=== PATIENT | female | born 1965 | race Caucasian/White ===

== ENCOUNTER 2019-01-29 19:13 | Emergency (ER) | payer SELFPAY ==
--- NOTE | 2019-01-29 19:18 | PDOC ---
Rapid Medical Evaluation Time Seen by Provider: 01/29/19 19:15 Medical Evaluation: 01/29/19 19:15 HPI: Seen by PC 2 days ago complains of Abdominal pain and body aches, fever, x5 days history of abdominal surgery last normal BM yesterday PE: No acute distress ORDERS:Labs 01/29/19 19:18 Discharge Disposition - Diagnosis Abdominal pain - Referrals - Patient Instructions - Post Discharge Activity
[2019-01-29 19:20] VITALS: BP 159/77; PULSE 96; TEMP 98.7; BMI 29.8
--- NOTE | 2019-01-29 21:01 | PDOC ---
History of Present Illness - General Chief Complaint: Pain Stated Complaint: REFER DR. SOTELO PT HERE/APPENDIX Time Seen by Provider: 01/29/19 19:15 - History of Present Illness Initial Comments: 01/29/19 20:59 53 year old woman with a history of who presents with 4 days of off and on fever (Tmax 103.4F) body aches, cough and suddent onset RUQ pain raditing to the R flank and R side of the groin, described as burning and constant since onset rated 9/10-10/10 mildly relieved with ibuprofen and associated with some nausea. She has not had a BM or passed gas for 1 day, which is unusual for her. She also complains of some bloating The denies any chest pain or shortness of breath, dysuria, hematuria had one loose stool yesterday pmshx: myomectomy, hysterectomy, cholecystectomy (2000) Past History - Past Medical History Allergies/Adverse Reactions: Allergies Allergy/AdvReac Type Severity Reaction Status Date / Time No Known Allergies Allergy Verified 01/29/19 19:15 COPD: No Diabetes: Yes (pre-diabetic) HTN: Yes (not taking meds) - Surgical History Cholecystectomy: Yes - Suicide/Smoking/Psychosocial Hx Smoking History: Never smoked Review of Systems - Review of Systems Able to Perform ROS?: Yes Comments:: 01/29/19 22:15 GENERAL/CONSTITUTIONAL: + fever No chills. No weakness. HEAD, EYES, EARS, NOSE AND THROAT: No change in vision. No ear pain or discharge. No sore throat. CARDIOVASCULAR: No chest pain or shortness of breath RESPIRATORY: + nonprod cough, No wheezing, or hemoptysis. GASTROINTESTINAL: + nausea, No vomiting, diarrhea or constipation. GENITOURINARY: No dysuria, frequency, or change in urination. MUSCULOSKELETAL: No joint or muscle swelling or pain. No neck or back pain. SKIN: No rash NEUROLOGIC: No headache, vertigo, loss of consciousness, or change in strength/ sensation. ENDOCRINE: No increased thirst. No abnormal weight change HEMATOLOGIC/LYMPHATIC: No anemia, easy bleeding, or history of blood clots. ALLERGIC/IMMUNOLOGIC: No hives or skin allergy. Is the patient limited Georgian proficient: No *Physical Exam - Vital Signs Last Vital Signs Temp Pulse Resp BP Pulse Ox 98.7 F 96 H 18 159/77 97 01/29/19 19:17 01/29/19 19:17 01/29/19 19:17 01/29/19 19:17 01/29/19 19:17 - Physical Exam Comments: 01/29/19 21:38 GENERAL: Awake, alert, and fully oriented, in no acute distress HEAD: No signs of trauma, normocephalic, atraumatic EYES: PERRLA, EOMI, sclera anicteric, conjunctiva clear ENT: oropharynx clear without exudates. Moist mucosa NECK: Normal ROM, supple, no lymphadenopathy LUNGS: No distress, speaks full sentences, clear to auscultation bilaterally HEART: Regular rate and rhythm, normal S1 and S2, no murmurs, rubs or gallops, peripheral pulses normal and equal bilaterally. ABDOMEN: Soft, + RUQ ab tender > RLQ, suprapubic tenderness, R cva tenderness, normoactive bowel sounds. No guarding, no rebound. No masses EXTREMITIES : Normal inspection, Normal range of motion, no edema. No clubbing or cyanosis. NEUROLOGICAL: Cranial nerves II through XII grossly intact. Normal speech, normal gait, no focal sensorimotor deficits SKIN: Warm, Dry, normal turgor, no rashes or lesions noted Medical Decision Making - Medical Decision Making 01/29/19 21:20 53 year old woman who presents with 4 days of off and on fever (Tmax 103.4F) body aches, cough and suddent onset RUQ pain raditing to the R flank and R side of the groin, described as burning and constant since onset rated 9/10-10/10 mildly relieved with ibuprofen and associated with some nausea. She has not had a BM or passed gas for 1 day, which is unusual for her. She also complains of some bloating The denies any chest pain or shortness of breath, dysuria, hematuria had one loose stool yesterday ED Course: ddx ibnlt: consider sbo vs retained gallstone vs pyelo vs nephrolithiasis vs colitis cbc, cmp, lipase, ua CT AP Patient signed out to resident Dr. Arenas *DC/Admit/Observation/Transfer Diagnosis at time of Disposition: Abdominal pain - Referrals Referrals: Germain Masters MD [Primary Care Provider] - - Patient Instructions - Post Discharge Activity
[2019-01-29] MEDS ORDERED: SODIUM CHLORIDE 1,000 ML IV SCH (22:00)
--- NOTE | 2019-01-29 22:03 | PDOC ---
*Physical Exam - Vital Signs Last Vital Signs Temp Pulse Resp BP Pulse Ox 98.7 F 96 H 18 159/77 97 01/29/19 19:17 01/29/19 19:17 01/29/19 19:17 01/29/19 19:17 01/29/19 19:17 ED Treatment Course - LABORATORY CBC & Chemistry Diagram: 01/29/19 22:05 01/29/19 22:30 Medical Decision Making - Medical Decision Making 01/29/19 22:02 Pt signed out to me by Dr. Rubio. 53F who presents with R flank pain. Pending CTAP. Pain will be treated with acetaminophen. 01/30/19 02:06 CT shows basilar pneumonia without evidence of intraabdominal pathology. Pt nontender on repeat exam. Will d/c home with abx and PCP f/u. *DC/Admit/Observation/Transfer Diagnosis at time of Disposition: Abdominal pain Qualifiers: Abdominal location: lower abdomen, unspecified Qualified Code(s): R10.30 - Lower abdominal pain, unspecified Pneumonia Qualifiers: Pneumonia type: due to unspecified organism Laterality: unspecified laterality Lung location: unspecified part of lung Qualified Code(s): J18.9 - Pneumonia, unspecified organism UTI (urinary tract infection) Qualifiers: Urinary tract infection type: site unspecified Hematuria presence: without hematuria Qualified Code(s): N39.0 - Urinary tract infection, site not specified - Discharge Dispostion Disposition: HOME Condition at time of disposition: Stable Decision to Admit order: No - Referrals Referrals: Germain Masters MD [Primary Care Provider] - - Patient Instructions Printed Discharge Instructions: DI for Urinary Tract Infection (UTI) Additional Instructions: Your ER visit is not complete until your follow up with your primary care physician. Please follow up with your primary care physician in 1-2 days. Please return to the ER if you have any signs or symptoms of chest pain, shortness of breath, uncontrollable fever, chills, nausea, vomiting, numbness, tingling, or weakness in any part of your body, changes in vision, or slurred speech. Please take your medications as prescribed. Please return to the ER if symptoms persist, worsen, or new symptoms arise. - Post Discharge Activity
[2019-01-29] MEDS ORDERED: ACETAMINOPHEN 1000 MG/100 ML VIAL (NON FORMULARY) IVPB ONE (22:05)
[2019-01-29 22:21] LABS: BASO % 0.7 % (0-2.0); EOS % 3.4 % (0-4.5); HEMATOCRIT 39.5 % (32.4-45.2); HEMOGLOBIN 13.1 GM/dL (10.7-15.3); LYMPH % 31.3 % (8-40); MCH 29.8 pg (25.7-33.7); MCHC 33.3 g/dl (32.0-36.0); MEAN CELL VOLUME 89.4 fl (80-96); MEAN PLT VOLUME 8.1 fl (7.5-11.1); MONO % 7.4 % (3.8-10.2); NEUT % 57.2 % (42.8-82.8); PLATELET COUNT 290 K/MM3 (134-434); RBC 4.41 M/mm3 (3.60-5.2); RDW 13.6 % (11.6-15.6); WHITE BLOOD COUNT 5.9 K/mm3 (4.0-10.0)
[2019-01-29 22:28] LABS: URINE APPEARANCE CLEAR; URINE BILIRUBIN NEGATIVE (NEGATIVE); URINE COLOR YELLOW; URINE GLUCOSE (UA) NEGATIVE (NEGATIVE); URINE KETONE NEGATIVE (NEGATIVE); URINE LEUK ESTERASE 2+ (NEGATIVE); URINE NITRITE NEGATIVE (NEGATIVE); URINE PROTEIN NEGATIVE (NEGATIVE); URINE UROBILINOGEN 0.2 mg/dL (0.2-1.0)
[2019-01-29] MEDS ORDERED: ACETAMINOPHEN INJECTION 100 ML IVPB ONE (22:31)
[2019-01-29 22:58] LABS: EPI CELLS 1.5 /HPF (0-5/HPF); URINE BACTERIA 50.8 /hpf (NEGATIVE); URINE CASTS 0.35 /lpf (0-8); URINE RBC 0.5 /hpf (0-4); URINE WBC 10.4 /hpf (0-5)
[2019-01-29 23:23] LABS: ALBUMIN 3.6 g/dl (3.4-5.0); BILIRUBIN,TOTAL 0.3 mg/dL (0.2-1); CREATININE 0.5 mg/dL (0.55-1.3); POTASSIUM 3.6 mmol/L (3.5-5.1); TOT PROT 7.2 g/dl (6.4-8.2)
[2019-01-29] MEDS ORDERED: CEFTRIAXONE 1,000 MG in DEXTROSE 5%-WATER - 50 ML IVPB ONE (23:37)
[2019-01-30] MEDS ORDERED: CEFTRIAXONE 1 GM/50 ML BAG ONE (00:21)
--- NOTE | 2019-01-30 00:54 | PDOC ---
Documentation entered by Abby Fowler SCRIBE, acting as scribe for Augustin Littlejohn MD. Augustin Littlejohn MD: This documentation has been prepared by the Malcolm brown Daisy, SCRIBE, under my direction and personally reviewed by me in its entirety. I confirm that the documentation accurately reflects all work, treatment, procedures, and medical decision making performed by me. Attending Attestation - Resident Resident Name: Lea Rubio - ED Attending Attestation I have performed the following: I have examined & evaluated the patient, The case was reviewed & discussed with the resident, I agree w/resident's findings & plan - HPI HPI: 01/29/19 22:10 The patient is a 53 YOF with a PMH of myomectomy, hysterectomy, and cholecystectomy (in 2000) who presents to the ED for right upper quadrant pain with radiation to the right flank and right side of her groin for the past 4 days. She endorses nausea, but has now resolved. Patient was seen by her PCP 2 days ago, was given a shot of toradol and given discharged home on motrin. Patient presents today for persistent right upper quadrant pain. Denies any cp, sob, fever, chills, N/V/D/C, or urinary symptoms. Allergies: NKDA - Physicial Exam PE: 01/30/19 00:51 Patient is awake and alert, well-nourished, in no distress Normocephalic and atraumatic PERRLA, EOMI, no scleral icterus mm-dry CTA RRR Abdomen is soft, nondistended, mild to moderate right upper quadrant and right lower quadrant is appreciated; no guarding /rebound, no CVA tenderness - Medical Decision Making 01/30/19 00:53 53-year-old female presents to the ER with flulike symptoms associated with right upper and right lower quadrant pain and nausea. Will obtain influenza A/B swab, will hydrate, we'll obtain CBC/CMP/CT of abdomen and pelvis. Will reassess. 01/30/19 01:50 Imaging: Abdomen and Pelvis CT Findings: Nodular and interstitial densities throughout right lung base. 2.1 cm right perihilar consolidation versus nodule. Findings suspicious for atypical infection. Additional 6 mm nodule left upper lobe and right lower lobe nodules up to 8 mm. Advise followup. No bowel obstruction, colitis, free fluid or free air. Normal appendix. Diverticulosis colon without acute diverticulitis. Unremarkable pancreas and kidneys. Cholecystectomy. Tiny umbilical hernia containing fat. Reported by: Dr. Villa
--- NOTE | 2019-01-30 17:16 | EKG ---
Test Reason : Blood Pressure : / mmHG Vent. Rate : 088 BPM Atrial Rate : 088 BPM P-R Int : 126 ms QRS Dur : 088 ms QT Int : 370 ms P-R-T Axes : 056 001 004 degrees QTc Int : 447 ms NORMAL SINUS RHYTHM NONSPECIFIC ST ABNORMALITY ABNORMAL ECG NO PREVIOUS ECGS AVAILABLE Confirmed by RADHA MCKEON MD ([id number]) on 01/30/2019 5:15:29 PM Referred By: Confirmed By:RADHA MCKEON MD
== END 2019-01-30 02:27 | disposition home or self-care (01) ==
LOC: JER 19:13
PROC: 3E03329 Introduction of Other Anti-infective into Peripheral Vein, Percutaneous Approach (ICD-10-PCS; principal; 2019-01-29)
PROC: 3E033NZ Introduction of Analgesics, Hypnotics, Sedatives into Peripheral Vein, Percutaneous Approach (ICD-10-PCS; 2019-01-29)
DX: J18.9 Pneumonia, unspecified organism (principal); N39.0 Urinary tract infection, site not specified; R10.9 Unspecified abdominal pain
CPT/HCPCS: 36415; 74177-TC; 80053; 81003; 82272; 83605; 83690; 85025; 87040; 87086; 87186; 87804; 93005; 93010; 99282-25; J0131; J7030

== ENCOUNTER 2019-09-30 10:14 | Emergency (ER) | payer OTHER ==
[2019-09-30 10:50] VITALS: BP 165/86; PULSE 83; TEMP 97.8
[2019-09-30] MEDS ORDERED: FAMOTIDINE 20 MG/50 ML IVPB 20 MG/50 ML MG IVPB ONE ×3 (12:16→13:29)
--- NOTE | 2019-09-30 12:17 | PDOC ---
History of Present Illness - General Chief Complaint: Pain, Acute Stated Complaint: STOMACH PAIN Time Seen by Provider: 09/30/19 11:27 History Source: Patient Exam Limitations: No Limitations - History of Present Illness Initial Comments: 09/30/19 12:16 54y F with PMH of PUD, cholecystectomy presenting to ED with abdominal pain radiating to the back across the L side of the abdomen, radiating to the chest and shoulder (L). She was recently diagnosed with PUD;tested positive for h. pylori, finished course of amoxicillin, clarithromycin and Prilosec. She states that she still has the abdominal pain. The pain is sharp and worse right before and after meals. Denies sob, fevers, chills, n/v/d, bloody stools, urinary symptoms, headache, weakness, numbness/tingling. Denies recent surgeries, blood clots, use of OCPS, travel, leg swelling, mi in the family or smoking. Past History - Past Medical History Allergies/Adverse Reactions: Allergies Allergy/AdvReac Type Severity Reaction Status Date / Time No Known Allergies Allergy Verified 01/29/19 19:15 Home Medications: Ambulatory Orders Esomeprazole Magnesium [Nexium 24Hr] 20 mg PO DAILY #30 capsule. 09/30/19 COPD: No Diabetes: Yes (pre-diabetic) HTN: Yes (not taking meds) - Surgical History Cholecystectomy: Yes - Psycho Social/Smoking Cessation Hx Smoking History: Never smoked Review of Systems - Review of Systems Constitutional: No: Symptoms Reported HEENTM: No: Symptoms Reported Respiratory: No: Symptoms reported Cardiac (ROS): Yes: See HPI ABD/GI: Yes: See HPI : No: Symptoms Reported Musculoskeletal: No: Symptoms Reported Integumentary: No: Symptoms Reported Neurological: No: Symptoms reported *Physical Exam - Vital Signs Last Vital Signs Temp Pulse Resp BP Pulse Ox 97.8 F 83 18 165/86 98 09/30/19 10:49 09/30/19 10:49 09/30/19 10:49 09/30/19 10:49 09/30/19 10:49 - Physical Exam General Appearance: Yes: Nourished, Appropriately Dressed. No: Apparent Distress HEENT: positive: EOMI, [place], Normal ENT Inspection Neck: positive: Trachea midline, Supple. negative: Lymphadenopathy (R), Lymphadenopathy (L) Respiratory/Chest: positive: Chest Tender (L scapula, L anterior chest), Lungs Clear, Normal Breath Sounds. negative: Crackles, Rales, Rhonchi, Stridor, Wheezing Cardiovascular: positive: Regular Rhythm, Regular Rate, S1, S2. negative: Edema , JVD, Murmur Vascular Pulses: Dorsalis-Pedis (R): 2+, Doralis-Pedis (L): 2+ Gastrointestinal/Abdominal: positive: Normal Bowel Sounds, Tender (epigastric tenderness), Soft Musculoskeletal: negative: CVA Tenderness Extremity: positive: Normal Capillary Refill. negative: Swelling, Calf Tenderness, Erythema Integumentary: positive: Normal Color, Dry, Warm Neurologic: positive: manager fitness II-XII NML intact, Fully Oriented, Alert, Normal Mood/ Affect, Normal Response, Motor Strength 01/26 ED Treatment Course - LABORATORY CBC & Chemistry Diagram: 09/30/19 12:25 09/30/19 12:25 - RADIOLOGY Radiology Studies Ordered: Category Date Time Status CHEST PA & LAT [RAD] Stat Radiology 09/30/19 12:15 Ordered Medical Decision Making - Medical Decision Making 09/30/19 19:46 54y F with PUD and cholecystectomy presenting for abdominal pain and chest pain. vitals wnl chest pain likely due to reflux/GERD or costochondritis given presentation. Low suspicion for mediastinitus or pneumomediastinum. PERC negative. will order basic labs, trop, ekg, cxr, ofirmev, pepcid ekg: nsr at 79bpm, normal intervals, no signs of ischemia labs wnl. negative trop. cxr: no free air or consolidations/infiltrates. pt much improved after medications. likely pain due to reflux/gerd or pud. can be dc home, will prescribe nexium. GI f/u given. Discharge - Discharge Information Problems reviewed: Yes Clinical Impression/Diagnosis: Abdominal pain Qualifiers: Abdominal location: epigastric Qualified Code(s): R10.13 - Epigastric pain Condition: Improved Disposition: HOME - Admission No - Additional Discharge Information Prescriptions: Esomeprazole Magnesium [Nexium 24Hr] 20 mg PO DAILY #30 capsule.dr - Follow up/Referral Referrals: Germain Masters MD [Primary Care Provider] - Brant Villareal MD [Staff Physician] - - Patient Discharge Instructions Patient Printed Discharge Instructions: DI for Peptic Ulcer Additional Instructions: Te vieron en la [facility] emerg[facility] por dolor abdominal. [place] probablemente se deba a la enfermedad de la lcera pptica causada por H. Pylori. Le dieron kesha receta para Nexium, tmela segn las indicaciones. Se le envi kesha referencia para un mdico GI. Por favor trate de hacer kesha judson. A veces, el seguro puede necesitar que noel mdico de atencin primaria lo remita a ulisses, as que yoselyn kesha judson con noel mdico. Regrese a la [facility] de emergencias si el dolor empeora, comienza a vomitar jonathan o si se desarrolla algn sntoma nuevo o preocupante. Tuyet You were seen in the emergency room for abdominal pain. This is likely due to the peptic ulcer disease caused by H. Pylori. You were given a prescription for Nexium, please take as directed. A referral was sent to you for a GI doctor. Please try to make an appointment. Sometimes the insurance may need your primary care doctor to refer you to one, so please make an appointment with your doctor. Come back to the emergency room if pain worsens, you start vomiting blood or if any new or concerning symptom develops. Thank you - Post Discharge Activity
[2019-09-30 12:39] LABS: BASO % 1.4 % (0-2.0); HEMATOCRIT 40.7 % (32.4-45.2); HEMOGLOBIN 13.5 GM/dL (10.7-15.3); LYMPH % 35.5 % (8-40); MCH 29.4 pg (25.7-33.7); MCHC 33.1 g/dl (32.0-36.0); MEAN CELL VOLUME 88.8 fl (80-96); MEAN PLT VOLUME 7.9 fl (7.5-11.1); MONO % 4.7 % (3.8-10.2); NEUT % 56.4 % (42.8-82.8); PLATELET COUNT 312 K/MM3 (134-434); RBC 4.58 M/mm3 (3.60-5.2); RDW 13.6 % (11.6-15.6); WHITE BLOOD COUNT 5.9 K/mm3 (4.0-10.0)
--- NOTE | 2019-09-30 12:56 | EKG ---
Test Reason : Blood Pressure : / mmHG Vent. Rate : 079 BPM Atrial Rate : 079 BPM P-R Int : 136 ms QRS Dur : 088 ms QT Int : 390 ms P-R-T Axes : 050 002 002 degrees QTc Int : 447 ms NORMAL SINUS RHYTHM NORMAL ECG WHEN COMPARED WITH ECG OF 29-JAN-2019 21:09, NO SIGNIFICANT CHANGE WAS FOUND Confirmed by MD Benedict Daniel ([id number]) on 09/30/2019 12:56:00 PM Referred By: Confirmed By:Germain Benedict MD
[2019-09-30 13:11] LABS: LIPASE 80 U/L (73-393)
[2019-09-30 13:13] LABS: ALBUMIN 3.9 g/dl (3.4-5.0); BILIRUBIN,TOTAL 0.3 mg/dL (0.2-1); BLOOD UREA NITROGEN 7.4 mg/dL (7-18); CALCIUM 9.2 mg/dL (8.5-10.1); CREATININE 0.6 mg/dL (0.55-1.3); POTASSIUM 3.7 mmol/L (3.5-5.1); TOT PROT 7.6 g/dl (6.4-8.2)
--- NOTE | 2019-09-30 13:42 | PDOC ---
Documentation entered by Germain Vincent SCRIBE, acting as scribe for Dewayne Lawrence MD. Dewayne Lawrence MD: This documentation has been prepared by the Carlton brown Daniel, SCRIBE, under my direction and personally reviewed by me in its entirety. I confirm that the documentation accurately reflects all work, treatment, procedures, and medical decision making performed by me. Attending Attestation - Resident Resident Name: Sa Brendaira - ED Attending Attestation I have performed the following: I have examined & evaluated the patient, The case was reviewed & discussed with the resident, I agree w/resident's findings & plan, Exceptions are as noted - HPI HPI: 09/30/19 13:42 54 F presenting to ED with 6 weeks of epigastric pain. Pt states that she has had pain radiating from her epigastrum to her L shoulder. Was diagnosed with H pylori by her PMD 3 weeks ago and completed her course of triple therapy abx. However, pt reports no improvement in her pain. Pt denies N/V. Denies CP/SOB. Denies diarrhea/constipation. Has not been taking any medications at home for this pain. - Physicial Exam PE: 09/30/19 13:43 "GENERAL: Awake, alert, and fully oriented, in no acute distress. HEAD: No signs of trauma EYES: PERRLA, EOMI, sclera anicteric, conjunctiva clear ENT: Auricles normal inspection, hearing grossly normal, nares patent, oropharynx clear without exudates. Moist mucosa NECK: Nontender, no stepoffs, Normal ROM, supple, no lymphadenopathy, JVD, or masses LUNGS: Breath sounds equal, clear to auscultation bilaterally. No wheezes, and no crackles HEART: Regular rate and rhythm, normal S1 and S2, no murmurs, rubs or gallops ABDOMEN: + epigastric TTP, negative johansen's, normoactive bowel sounds. No guarding, no rebound. No masses EXTREMITIES: Normal range of motion, no edema. No clubbing or cyanosis. No cords, erythema, or tenderness NEUROLOGICAL: Cranial nerves II through XII intact. 5/5 strength and sensation in all extremities, Normal speech, normal gait, normal cerebellar function SKIN: Warm, Dry, normal turgor, no rashes or lesions noted. - Medical Decision Making 09/30/19 13:43 54 F with epigastric pain, likely 2/2 gastritis vs PUD. Recently tx'ed for H pylori. - Labs - CXR to r/o free air - GI cocktail 09/30/19 14:50 Labs and xr unremarkable Pt reassessed - feels significantly better s/p GI meds Pt is well appearing, with normal vitals. Clinically stable for DC at this time. I discussed the physical exam findings, ancillary test results and final diagnoses with the patient. I answered all of the patient's questions. The patient was satisfied with the care received and felt comfortable with the discharge plan and treatment plan. The patient agrees to follow up with the primary care physician within 24-72 hours.
== END 2019-09-30 15:00 | disposition home or self-care (01) ==
LOC: JER 10:14
PROC: 3E033GC Introduction of Other Therapeutic Substance into Peripheral Vein, Percutaneous Approach (ICD-10-PCS; principal; 2019-09-30)
DX: R10.13 Epigastric pain (principal); I10 Essential (primary) hypertension; R73.03 Prediabetes; Z86.19 Personal history of other infectious and parasitic diseases
CPT/HCPCS: 36415; 71046-TC-FY; 80053; 83690; 84484; 85025; 93005; 93010; 96365; 99282-25

== ENCOUNTER 2020-07-18 20:40 | Inpatient (IN) | payer OTHER ==
[2020-07-18] MEDS ORDERED: LACTATED RINGERS SOLUTION 1000 ML INFUS.BAG IV ONE (22:00)
[2020-07-18] MEDS ORDERED: ACETAMINOPHEN 325 MG TABLET (FP) ONE (22:15)
[2020-07-18] MEDS ORDERED: ACETAMINOPHEN 325 MG TABLET (FP) PO ONE (22:15)
[2020-07-18 22:20] LABS: BASO % 1.2 % (0-2.0); EOS % 0.6 % (0-4.5); HEMATOCRIT 39.2 % (32.4-45.2); HEMOGLOBIN 13.1 GM/dL (10.7-15.3); LYMPH % 27.6 % (8-40); MCHC 33.5 g/dl (32.0-36.0); MEAN CELL VOLUME 86.5 fl (80-96); MEAN PLT VOLUME 7.9 fl (7.5-11.1); MONO % 4.9 % (3.8-10.2); NEUT % 65.7 % (42.8-82.8); PLATELET COUNT 389 K/MM3 (134-434); RBC 4.52 M/mm3 (3.60-5.2); RDW 13.3 % (11.6-15.6)
[2020-07-18 22:40] LABS: POTASSIUM 4.3 mmol/L (3.5-5.1)
[2020-07-18 22:42] LABS: CALCIUM 9.4 mg/dL (8.5-10.1)
[2020-07-18 22:43] LABS: ALBUMIN 3.7 g/dl (3.4-5.0); BLOOD UREA NITROGEN 8.4 mg/dL (7-18)
[2020-07-18 22:45] LABS: CREATININE 0.6 mg/dL (0.55-1.3)
[2020-07-18 22:47] LABS: BILIRUBIN,TOTAL 0.4 mg/dL (0.2-1); TOT PROT 8.2 g/dl (6.4-8.2)
[2020-07-18] MEDS ORDERED: LACTULOSE 20 GM/30 ML UDC (FOR ORAL USE ONLY) PO ONE (22:54)
[2020-07-18] MEDS ORDERED: LACTULOSE 20 GM/30 ML UDC (FOR ORAL USE ONLY) ONE (23:52)
[2020-07-19 00:51] LABS: PH,URINE 6.5 (5.0-8.0); URINE APPEARANCE CLEAR; URINE BILIRUBIN NEGATIVE (NEGATIVE); URINE COLOR YELLOW; URINE GLUCOSE (UA) NEGATIVE (NEGATIVE); URINE KETONE NEGATIVE (NEGATIVE); URINE LEUK ESTERASE NEGATIVE (NEGATIVE); URINE NITRITE NEGATIVE (NEGATIVE); URINE PROTEIN NEGATIVE (NEGATIVE); URINE UROBILINOGEN 0.2 mg/dL (0.2-1.0)
[2020-07-19] MEDS: DEXTROSE 5%-0.45% SALINE 1,000 ML IV SCH ×2 (03:26→11:08)
[2020-07-19] MEDS ORDERED: ACETAMINOPHEN 1000 MG/100 ML VIAL (NON FORMULARY) IVPB PRN (06:00)
[2020-07-19 07:43] LABS: BASO % 0.6 % (0-2.0); EOS % 1.1 % (0-4.5); HEMATOCRIT 34.8 % (32.4-45.2); HEMOGLOBIN 11.4 GM/dL (10.7-15.3); LYMPH % 27.3 % (8-40); MCH 28.3 pg (25.7-33.7); MCHC 32.8 g/dl (32.0-36.0); MEAN CELL VOLUME 86.1 fl (80-96); MEAN PLT VOLUME 7.8 fl (7.5-11.1); MONO % 6.7 % (3.8-10.2); NEUT % 64.3 % (42.8-82.8); PLATELET COUNT 387 K/MM3 (134-434); RBC 4.04 M/mm3 (3.60-5.2); RDW 13.2 % (11.6-15.6); WHITE BLOOD COUNT 7.9 K/mm3 (4.0-10.0)
[2020-07-19 08:14] LABS: POTASSIUM 3.4 mmol/L (3.5-5.1)
[2020-07-19 08:15] LABS: CALCIUM 8.9 mg/dL (8.5-10.1)
[2020-07-19 08:16] LABS: ALBUMIN 3.3 g/dl (3.4-5.0); BLOOD UREA NITROGEN 8.5 mg/dL (7-18)
[2020-07-19 08:19] LABS: CREATININE 0.5 mg/dL (0.55-1.3)
[2020-07-19 08:21] LABS: BILIRUBIN,TOTAL 0.5 mg/dL (0.2-1); TOT PROT 6.9 g/dl (6.4-8.2)
[2020-07-19] MEDS ORDERED: POTASSIUM CHLORIDE 10 MEQ PREMIX IVPB (POTASSIUM RIDER) IVPB SCH ×2 (08:36→11:00)
[2020-07-19] MEDS ORDERED: PT OWN MED DRAWER 7, Y5N ONE (10:20)
[2020-07-19] MEDS: HEPARIN NA (PORCINE) 5,000 UNITS/ML 1ML VIAL SQ SCH ×2 (10:25→21:49)
[2020-07-19] MEDS: PANTOPRAZOLE SODIUM 40 MG VIAL IVPUSH SCH (10:25)
[2020-07-19] MEDS: KCL 10 MEQ IVPB 10 MEQ/100 ML INFUS.BAG IVPB SCH ×2 (11:09→12:12)
[2020-07-19] MEDS ORDERED: INSULIN SLIDING SCALE (NOVOLOG) 1 VIAL SQ SCH (16:30)
[2020-07-19] MEDS ORDERED: INSULIN (NOVOLOG) ASPART 100 UNITS/ML 10ML VIAL ONE (21:12)
[2020-07-19] MEDS: INSULIN SLIDING SCALE (NOVOLOG) 1 VIAL SQ SCH (21:49)
[2020-07-20] MEDS: DEXTROSE 5%-0.45% SALINE 1,000 ML IV SCH ×2 (02:03→18:14)
[2020-07-20 05:08] LABS: CARCINOEMBRYONIC ANTIGEN 0.5 ng/mL (0.0-4.7)
[2020-07-20] MEDS: INSULIN SLIDING SCALE (NOVOLOG) 1 VIAL SQ SCH ×4 (06:03→21:34)
[2020-07-20 09:01] LABS: BLOOD UREA NITROGEN 6.6 mg/dL (7-18); CALCIUM 8.9 mg/dL (8.5-10.1)
[2020-07-20 09:02] LABS: ALBUMIN 3.1 g/dl (3.4-5.0); MAGNESIUM 2.2 mg/dL (1.8-2.4)
[2020-07-20 09:05] LABS: BASO % 0.8 % (0-2.0); CREATININE 0.5 mg/dL (0.55-1.3); EOS % 1.8 % (0-4.5); HEMATOCRIT 35.5 % (32.4-45.2); HEMOGLOBIN 11.6 GM/dL (10.7-15.3); MCH 28.6 pg (25.7-33.7); MCHC 32.8 g/dl (32.0-36.0); MEAN CELL VOLUME 87.4 fl (80-96); MEAN PLT VOLUME 8.3 fl (7.5-11.1); MONO % 6.6 % (3.8-10.2); NEUT % 63.8 % (42.8-82.8); PLATELET COUNT 357 K/MM3 (134-434); RBC 4.06 M/mm3 (3.60-5.2); RDW 13.5 % (11.6-15.6); WHITE BLOOD COUNT 6.5 K/mm3 (4.0-10.0)
[2020-07-20 09:06] LABS: BILIRUBIN,TOTAL 0.6 mg/dL (0.2-1); TOT PROT 6.6 g/dl (6.4-8.2)
[2020-07-20] MEDS: PANTOPRAZOLE SODIUM 40 MG VIAL IVPUSH SCH (10:43)
[2020-07-20] MEDS: HEPARIN NA (PORCINE) 5,000 UNITS/ML 1ML VIAL SQ SCH ×2 (10:43→21:27)
[2020-07-20] MEDS: ACETAMINOPHEN 325 MG TABLET (FP) PO PRN (17:15)
[2020-07-21] MEDS: DEXTROSE 5%-0.45% SALINE 1,000 ML IV SCH ×2 (05:45→17:47)
[2020-07-21] MEDS: INSULIN SLIDING SCALE (NOVOLOG) 1 VIAL SQ SCH ×4 (06:20→22:01)
[2020-07-21 08:51] LABS: BASO % 0.6 % (0-2.0); EOS % 1.3 % (0-4.5); HEMATOCRIT 34.9 % (32.4-45.2); HEMOGLOBIN 11.4 GM/dL (10.7-15.3); LYMPH % 32.1 % (8-40); MCH 28.1 pg (25.7-33.7); MCHC 32.6 g/dl (32.0-36.0); MEAN CELL VOLUME 86.2 fl (80-96); MEAN PLT VOLUME 7.9 fl (7.5-11.1); MONO % 5.3 % (3.8-10.2); NEUT % 60.7 % (42.8-82.8); PLATELET COUNT 350 K/MM3 (134-434); RBC 4.04 M/mm3 (3.60-5.2); RDW 13.3 % (11.6-15.6); WHITE BLOOD COUNT 6.3 K/mm3 (4.0-10.0)
[2020-07-21 09:22] LABS: CALCIUM 8.8 mg/dL (8.5-10.1)
[2020-07-21 09:23] LABS: BLOOD UREA NITROGEN 5.6 mg/dL (7-18); MAGNESIUM 2.3 mg/dL (1.8-2.4)
[2020-07-21 09:26] LABS: CREATININE 0.5 mg/dL (0.55-1.3)
[2020-07-21 09:27] LABS: BILIRUBIN,TOTAL 0.5 mg/dL (0.2-1); TOT PROT 6.2 g/dl (6.4-8.2)
[2020-07-21] MEDS: HEPARIN NA (PORCINE) 5,000 UNITS/ML 1ML VIAL SQ SCH ×2 (09:45→21:25)
[2020-07-21] MEDS: PANTOPRAZOLE SODIUM 40 MG VIAL IVPUSH SCH (09:45)
[2020-07-21] MEDS ORDERED: PT OWN MED DRAWER 7, Y5N ONE (20:58)
[2020-07-22] MEDS: INSULIN SLIDING SCALE (NOVOLOG) 1 VIAL SQ SCH ×4 (06:05→21:57)
[2020-07-22] MEDS: DEXTROSE 5%-0.45% SALINE 1,000 ML IV SCH ×2 (08:12→21:53)
[2020-07-22 09:21] LABS: BASO % 0.6 % (0-2.0); EOS % 1.4 % (0-4.5); HEMATOCRIT 33.4 % (32.4-45.2); HEMOGLOBIN 11.3 GM/dL (10.7-15.3); LYMPH % 29.9 % (8-40); MCH 29.2 pg (25.7-33.7); MCHC 33.8 g/dl (32.0-36.0); MEAN CELL VOLUME 86.4 fl (80-96); MEAN PLT VOLUME 8.3 fl (7.5-11.1); MONO % 6.2 % (3.8-10.2); NEUT % 61.9 % (42.8-82.8); PLATELET COUNT 361 K/MM3 (134-434); RBC 3.86 M/mm3 (3.60-5.2); RDW 13.5 % (11.6-15.6); WHITE BLOOD COUNT 6.9 K/mm3 (4.0-10.0)
[2020-07-22 09:28] LABS: POTASSIUM 3.9 mmol/L (3.5-5.1)
[2020-07-22 09:33] LABS: CALCIUM 8.8 mg/dL (8.5-10.1)
[2020-07-22 09:34] LABS: BLOOD UREA NITROGEN 6.3 mg/dL (7-18); MAGNESIUM 2.3 mg/dL (1.8-2.4)
[2020-07-22 09:37] LABS: BILIRUBIN,TOTAL 0.4 mg/dL (0.2-1); CREATININE 0.6 mg/dL (0.55-1.3); TOT PROT 6.2 g/dl (6.4-8.2)
[2020-07-22] MEDS: PANTOPRAZOLE SODIUM 40 MG VIAL IVPUSH SCH (09:42)
[2020-07-22] MEDS: HEPARIN NA (PORCINE) 5,000 UNITS/ML 1ML VIAL SQ SCH ×2 (09:42→21:51)
[2020-07-22] MEDS: ACETAMINOPHEN 325 MG TABLET (FP) PO PRN ×2 (12:11→21:50)
[2020-07-23] MEDS: DEXTROSE 5%-0.45% SALINE 1,000 ML IV SCH ×2 (02:11→10:25)
[2020-07-23] MEDS: INSULIN SLIDING SCALE (NOVOLOG) 1 VIAL SQ SCH ×4 (06:46→21:17)
[2020-07-23] MEDS: HEPARIN NA (PORCINE) 5,000 UNITS/ML 1ML VIAL SQ SCH ×2 (10:24→21:18)
[2020-07-23] MEDS: PANTOPRAZOLE SODIUM 40 MG VIAL IVPUSH SCH (10:24)
[2020-07-23] MEDS: ACETAMINOPHEN 325 MG TABLET (FP) PO PRN ×2 (10:31→17:08)
[2020-07-23 10:32] LABS: BASO % 0.8 % (0-2.0); EOS % 0.8 % (0-4.5); HEMATOCRIT 35.7 % (32.4-45.2); HEMOGLOBIN 11.6 GM/dL (10.7-15.3); LYMPH % 20.4 % (8-40); MCH 28.1 pg (25.7-33.7); MCHC 32.4 g/dl (32.0-36.0); MEAN CELL VOLUME 86.9 fl (80-96); MEAN PLT VOLUME 8.1 fl (7.5-11.1); MONO % 5.7 % (3.8-10.2); NEUT % 72.3 % (42.8-82.8); PLATELET COUNT 374 K/MM3 (134-434); RBC 4.11 M/mm3 (3.60-5.2); RDW 13.6 % (11.6-15.6); WHITE BLOOD COUNT 7.3 K/mm3 (4.0-10.0)
[2020-07-23 10:38] LABS: INR 1.15 (0.83-1.09); PROTHROMBIN TIME (PATIENT) 14.1 SEC (9.7-13.0)
[2020-07-23 10:46] LABS: POTASSIUM 3.7 mmol/L (3.5-5.1)
[2020-07-23 10:47] LABS: ALBUMIN 3.2 g/dl (3.4-5.0); BLOOD UREA NITROGEN 5.3 mg/dL (7-18); CALCIUM 8.5 mg/dL (8.5-10.1); MAGNESIUM 2.2 mg/dL (1.8-2.4)
[2020-07-23 10:51] LABS: CREATININE 0.5 mg/dL (0.55-1.3)
[2020-07-23 10:52] LABS: BILIRUBIN,TOTAL 0.5 mg/dL (0.2-1); TOT PROT 6.7 g/dl (6.4-8.2)
[2020-07-23 15:39] LABS: BF WBC & OTHER NUCLEATED CELLS 1847 /mm3
[2020-07-23 17:41] LABS: BODY FLUID MACROPHAGES 17 %
[2020-07-23 17:44] LABS: BODY FLUID MESOTHELIAL 18 %
[2020-07-23] MEDS ORDERED: INSULIN (NOVOLOG) ASPART 100 UNITS/ML 10ML VIAL ONE (21:08)
[2020-07-23] MEDS ORDERED: PT OWN MED DRAWER 7, Y5N ONE (21:08)
[2020-07-24] MEDS: DEXTROSE 5%-0.45% SALINE 1,000 ML IV SCH ×2 (03:14→15:33)
[2020-07-24] MEDS: INSULIN SLIDING SCALE (NOVOLOG) 1 VIAL SQ SCH ×4 (06:11→22:11)
[2020-07-24] MEDS: PANTOPRAZOLE SODIUM 40 MG VIAL IVPUSH SCH (09:49)
[2020-07-24] MEDS: HEPARIN NA (PORCINE) 5,000 UNITS/ML 1ML VIAL SQ SCH ×2 (09:49→22:13)
[2020-07-24 10:28] LABS: BASO % 0.9 % (0-2.0); EOS % 1.2 % (0-4.5); HEMATOCRIT 35.9 % (32.4-45.2); HEMOGLOBIN 11.7 GM/dL (10.7-15.3); LYMPH % 26.7 % (8-40); MCH 28.7 pg (25.7-33.7); MCHC 32.7 g/dl (32.0-36.0); MEAN CELL VOLUME 87.7 fl (80-96); MEAN PLT VOLUME 8.4 fl (7.5-11.1); MONO % 5.3 % (3.8-10.2); NEUT % 65.9 % (42.8-82.8); PLATELET COUNT 358 K/MM3 (134-434); RBC 4.09 M/mm3 (3.60-5.2); RDW 13.5 % (11.6-15.6); WHITE BLOOD COUNT 6.4 K/mm3 (4.0-10.0)
[2020-07-24 10:59] LABS: POTASSIUM 3.9 mmol/L (3.5-5.1)
[2020-07-24 11:03] LABS: CALCIUM 8.7 mg/dL (8.5-10.1)
[2020-07-24 11:04] LABS: ALBUMIN 3.1 g/dl (3.4-5.0); BLOOD UREA NITROGEN 4.7 mg/dL (7-18); MAGNESIUM 2.3 mg/dL (1.8-2.4)
[2020-07-24 11:06] LABS: CREATININE 0.5 mg/dL (0.55-1.3)
[2020-07-24 11:08] LABS: BILIRUBIN,TOTAL 0.5 mg/dL (0.2-1); TOT PROT 6.8 g/dl (6.4-8.2)
[2020-07-24] MEDS ORDERED: INSULIN (NOVOLOG) ASPART 100 UNITS/ML 10ML VIAL ONE ×2 (12:17→21:07)
[2020-07-24] MEDS ORDERED: INSULIN (NOVOLOG MIX 70/30) 100 UNITS/ML MDV SQ ONE (12:17)
[2020-07-24] MEDS: ACETAMINOPHEN 325 MG TABLET (FP) PO PRN (15:37)
[2020-07-24] MEDS: metFORMIN HCL 500 MG TABLET (FP) PO SCH (16:25)
[2020-07-25 06:36] LABS: BODY FLUID ALBUMIN 3.3 g/dL (Not Estab.)
[2020-07-25] MEDS: DEXTROSE 5%-0.45% SALINE 1,000 ML IV SCH ×2 (06:44→14:27)
[2020-07-25] MEDS: metFORMIN HCL 500 MG TABLET (FP) PO SCH ×2 (06:45→17:21)
[2020-07-25] MEDS: INSULIN SLIDING SCALE (NOVOLOG) 1 VIAL SQ SCH ×4 (06:45→22:29)
[2020-07-25 07:48] LABS: BASO % 0.9 % (0-2.0); EOS % 1.5 % (0-4.5); HEMATOCRIT 32.9 % (32.4-45.2); HEMOGLOBIN 10.6 GM/dL (10.7-15.3); LYMPH % 29.6 % (8-40); MCH 27.7 pg (25.7-33.7); MCHC 32.2 g/dl (32.0-36.0); MEAN PLT VOLUME 8.2 fl (7.5-11.1); MONO % 5.7 % (3.8-10.2); NEUT % 62.3 % (42.8-82.8); PLATELET COUNT 365 K/MM3 (134-434); RBC 3.83 M/mm3 (3.60-5.2); RDW 13.5 % (11.6-15.6); WHITE BLOOD COUNT 5.8 K/mm3 (4.0-10.0)
[2020-07-25 08:03] LABS: POTASSIUM 3.7 mmol/L (3.5-5.1)
[2020-07-25 08:07] LABS: CALCIUM 8.9 mg/dL (8.5-10.1)
[2020-07-25 08:09] LABS: ALBUMIN 2.8 g/dl (3.4-5.0); BLOOD UREA NITROGEN 4.7 mg/dL (7-18); MAGNESIUM 2.3 mg/dL (1.8-2.4)
[2020-07-25 08:11] LABS: CREATININE 0.4 mg/dL (0.55-1.3)
[2020-07-25 08:13] LABS: BILIRUBIN,TOTAL 0.3 mg/dL (0.2-1); TOT PROT 6.4 g/dl (6.4-8.2)
[2020-07-25] MEDS: HEPARIN NA (PORCINE) 5,000 UNITS/ML 1ML VIAL SQ SCH ×2 (09:29→22:28)
[2020-07-25] MEDS: ACETAMINOPHEN 325 MG TABLET (FP) PO PRN (09:30)
[2020-07-25] MEDS: PANTOPRAZOLE SODIUM 40 MG VIAL IVPUSH SCH (09:30)
[2020-07-25] MEDS ORDERED: BISACODYL 5 MG TABLET.DR (FP) PO ONE (14:00)
[2020-07-25] MEDS ORDERED: POLYETHYLENE GLYCOL 3350 255 GM BTL PO ONE (15:00)
[2020-07-25] MEDS ORDERED: SODIUM CHLORIDE 0.9% 500 ML INFUS.BAG IV ONE (15:54)
[2020-07-25] MEDS ORDERED: SODIUM CHLORIDE 500 ML IV ONE (17:00)
[2020-07-26] MEDS: DEXTROSE 5%-0.45% SALINE 1,000 ML IV SCH (06:00)
[2020-07-26] MEDS: metFORMIN HCL 500 MG TABLET (FP) PO SCH ×2 (06:47→17:02)
[2020-07-26] MEDS: INSULIN SLIDING SCALE (NOVOLOG) 1 VIAL SQ SCH ×4 (06:48→21:59)
[2020-07-26] MEDS: PANTOPRAZOLE SODIUM 40 MG VIAL IVPUSH SCH (09:38)
[2020-07-27] MEDS ORDERED: PT OWN MED DRAWER 7, Y5N ONE ×2 (06:02→09:58)
[2020-07-27] MEDS: CLOTRIMAZOLE 10 MG TROCHE PO SCH ×4 (06:15→17:36)
[2020-07-27] MEDS: metFORMIN HCL 500 MG TABLET (FP) PO SCH ×2 (07:15→17:34)
[2020-07-27] MEDS: DEXTROSE 5%-0.45% SALINE 1,000 ML IV SCH (07:15)
[2020-07-27] MEDS: INSULIN SLIDING SCALE (NOVOLOG) 1 VIAL SQ SCH ×3 (07:17→17:34)
[2020-07-27 08:10] LABS: BASO % 0.7 % (0-2.0); EOS % 1.2 % (0-4.5); HEMATOCRIT 32.3 % (32.4-45.2); HEMOGLOBIN 10.7 GM/dL (10.7-15.3); LYMPH % 26.8 % (8-40); MCH 28.4 pg (25.7-33.7); MCHC 32.9 g/dl (32.0-36.0); MEAN CELL VOLUME 86.3 fl (80-96); MONO % 6.2 % (3.8-10.2); NEUT % 65.1 % (42.8-82.8); PLATELET COUNT 379 K/MM3 (134-434); RBC 3.75 M/mm3 (3.60-5.2); RDW 13.3 % (11.6-15.6); WHITE BLOOD COUNT 5.9 K/mm3 (4.0-10.0)
[2020-07-27 08:23] LABS: POTASSIUM 3.7 mmol/L (3.5-5.1)
[2020-07-27 08:25] LABS: CALCIUM 8.3 mg/dL (8.5-10.1)
[2020-07-27 08:26] LABS: ALBUMIN 2.9 g/dl (3.4-5.0); BLOOD UREA NITROGEN 5.4 mg/dL (7-18); MAGNESIUM 2.4 mg/dL (1.8-2.4)
[2020-07-27 08:29] LABS: CREATININE 0.5 mg/dL (0.55-1.3)
[2020-07-27 08:31] LABS: BILIRUBIN,TOTAL 0.3 mg/dL (0.2-1); TOT PROT 6.2 g/dl (6.4-8.2)
[2020-07-27] MEDS ORDERED: PANTOPRAZOLE 40 MG TABLET PO SCH (10:00)
[2020-07-27] MEDS: ACETAMINOPHEN 325 MG TABLET (FP) PO PRN (11:45)
[2020-07-27 12:41] VITALS: BMI 29.8
[2020-07-27 15:32] VITALS: BP 103/55; PULSE 80; TEMP 98.1
== END 2020-07-27 18:56 | disposition home or self-care (01) | DRG 229 ==
LOC: JER 20:40 → JERBED 07-19 00:14 → J8W 07-19 05:04
PROVIDERS: ADMIT Internal Medicine; ATTEND Nurse Practitioner Acute Care
PROC: 0W9G3ZX Drainage of Peritoneal Cavity, Percutaneous Approach, Diagnostic (ICD-10-PCS; principal; 2020-07-23)
PROC: 0DB68ZX Excision of Stomach, Via Natural or Artificial Opening Endoscopic, Diagnostic (ICD-10-PCS; 2020-07-26)
PROC: 0DBE8ZX Excision of Large Intestine, Via Natural or Artificial Opening Endoscopic, Diagnostic (ICD-10-PCS; 2020-07-26)
DX: D49.0 Neoplasm of unspecified behavior of digestive system (principal); E87.6 Hypokalemia; K27.9 Peptic ulcer, site unspecified, unspecified as acute or chronic, without hemorrhage or perforation; K63.89 Other specified diseases of intestine; R16.0 Hepatomegaly, not elsewhere classified; E11.9 Type 2 diabetes mellitus without complications; B37.0 Candidal stomatitis; R18.8 Other ascites; K64.8 Other hemorrhoids; K57.30 Diverticulosis of large intestine without perforation or abscess without bleeding
CPT/HCPCS: 36415; 71045-TC-FY; 74174-TC; 74177-TC; 76705-TC; 76830-TC; 76942-TC; 80053; 81003; 82042; 82105; 82150; 82378; 82465; 82945; 82962; 83036; 83605; 83690; 83735; 83986; 84157; 84478; 84484; 84702; 85025; 85610; 86301; 86304; 87070; 87075; 87086; 87102; 87116; 87205; 87206; 87210; 88108; 88305-TC; 88341-TC; 93005; 93010; 99285-25; C9803; J1644; Q9967; U0003